=== PATIENT | female | born 1955 | race Hispanic/Latino ===

== ENCOUNTER → 2016-03-13 | Outpatient (CLI) | payer OTHER ==
[~2016-03-13] MED LIST: ABILIFY2 MG PO; AURALGAN14.8 ML RIGHT EAR; CYMBALTA60 MG PO; REMERON15 M2 PO; TRAMADOL HCL50 MG PO; VALIUM2 MG PO; XANAX XR1 MG PO
== END ==
LOC: MRI 09:55 → RAD 11:00
DX: G96.19 Other disorders of meninges, not elsewhere classified (principal); M54.2 Cervicalgia; G89.29 Other chronic pain
CPT/HCPCS: 72156

== ENCOUNTER 2016-06-04 15:39 | Emergency (ER) | payer OTHER ==
[~2016-06-04] VITALS: Ht 172.7 cm; Wt 70.7 kg
[2016-06-04 18:40] VITALS: BP 171/78
[2016-06-04] MEDS ORDERED: CYMBALTA60 MG PO (18:43)
[2016-06-04] MEDS ORDERED: DEPAKOTE125 MG PO (18:43)
[2016-06-04] MEDS ORDERED: PERCOCET 5/31 TABLET PO (18:44)
[2016-06-04] MEDS ORDERED: DICLOFENAC SOD100 G1 TP (18:44)
== END 2016-06-04 18:47 ==
LOC: EME 15:39
DX: S00.81XA Abrasion of other part of head, initial encounter (principal); R51 Headache; W05.0XXA Fall from non-moving wheelchair, initial encounter; J45.909 Unspecified asthma, uncomplicated; E11.9 Type 2 diabetes mellitus without complications; G20 Parkinson's disease; M81.0 Age-related osteoporosis without current pathological fracture
CPT/HCPCS: 70450; 70486; 99281; 99284

== ENCOUNTER 2017-01-13 13:40 | Observation (INO) | payer OTHER ==
[~2017-01-13] VITALS: Ht 154.9 cm; Wt 67.5 kg
[~2017-01-13 13:40] MED LIST changes: +DEPAKOTE125 MG PO; +DICLOFENAC SOD100 G1 TP; +PERCOCET 5/31 TABLET PO
[2017-01-13 14:01] LABS: EOSINOPHIL (%) 2.4 % (0-5); EOSINOPHIL COUNT 0.2 K/uL (0-0.3); HEMATOCRIT 39.5 % (36.0-46.0); IMMATURE GRANULOCYTE (%) 0.6 % (0.0-0.7); INSTRUMENT ABS NEUTROPHIL CT 4.1 K/uL; LYMPHOCYTE COUNT 2.4 K/uL (1.0-2.8); MCH 31.4 PG (29.0-34.0); MCHC 32.4 G/DL (30.0-36.0); MCV 96.8 FL (83-99); MEAN PLAT.VOLUME 10.8 uM^3 (9.5-12.4); MONOCYTE (%) 6.3 % (3-12); MONOCYTE COUNT 0.5 K/uL (0-0.8); NEUTROPHIL (%) 57.5 % (45-76); NEUTROPHIL COUNT 4.1 K/uL (1.8-6.4); PLATELET COUNT 165 K/uL (156-360); RBC DIS.WIDTH-CV 12.9 % (11.8-14.6); RBC DIS.WIDTH-SD 46.3 % (39-53); RED BLOOD COUNT 4.08 M/uL (3.80-5.20); WHITE BLOOD COUNT 7.2 K/uL (4.1-10.2)
[2017-01-13] MEDS ORDERED: FLONASE SENSIM9.9 ML BOTH NARES (14:04)
[2017-01-13] MEDS ORDERED: MIRALAX255 GM PO (14:05)
[2017-01-13] MEDS ORDERED: LANTUS 3 M100 UNITS1 SC (14:05)
[2017-01-13 14:07] LABS: INTER. NORMALIZED RATIO 1.1; PROTHROMBIN TIME 12.3 SEC (10.2-12.9)
[2017-01-13] MEDS ORDERED: SENOKOT S,PE1 TABLET PO ×2 (14:08)
[2017-01-13 14:09] LABS: PTT 29.4 SEC (25-37)
[2017-01-13] MEDS ORDERED: ZOCOR40 MG PO (14:09)
[2017-01-13] MEDS ORDERED: DESYREL100 MG PO (14:10)
[2017-01-13] MEDS ORDERED: CRANBERRY425 MG PO (14:10)
[2017-01-13] MEDS ORDERED: NORCO 5/3251 TABLET PO (14:10)
[2017-01-13] MEDS ORDERED: ZANAFLEX4 MG PO (14:11)
[2017-01-13 14:12] LABS: AMYLASE 128 IU/L (1-118); CHLORIDE 102 mEq/L (99-109); POTASSIUM 4.6 mEq/L (3.7-5.4); SODIUM 136 mEq/L (136-147)
[2017-01-13] MEDS ORDERED: DULCOLAX10 MG PR (14:12)
[2017-01-13] MEDS ORDERED: FLEET ENEMA-AD118 ML PR (14:12)
[2017-01-13] MEDS ORDERED: MILK OF MAGN PO (14:12)
[2017-01-13 14:14] LABS: GLUCOSE 199 mg/dL (70-99)
[2017-01-13] MEDS ORDERED: GLUCO BURST37.5 GM PO (14:14)
[2017-01-13 14:15] LABS: ANION GAP 11 MEQ/L (2-14)
[2017-01-13] MEDS ORDERED: ULTRAM50 MG PO (14:15)
[2017-01-13] MEDS ORDERED: TYLENOL REGULA325 MG PO (14:16)
[2017-01-13 14:17] LABS: SERUM ETHYL ALCOHOL < 10 mg/dL
[2017-01-13] MEDS ORDERED: LIDOCARE1 EACH TP (14:17)
[2017-01-13 14:18] LABS: GFR ESTIMATE (CALCULATED) > 59 mL/min/
[2017-01-13] MEDS ORDERED: HIPREX1 GM PO (14:18)
[2017-01-13] MEDS ORDERED: GLUCOPHAGE1000 MG PO (14:18)
[2017-01-13] MEDS ORDERED: NEURONTIN300 MG PO (14:18)
[2017-01-13 14:19] LABS: UREA NITROGEN (BUN) 11 mg/dL (9-23)
[2017-01-13] MEDS ORDERED: TOPAMAX25 MG PO (14:19)
[2017-01-13 14:21] LABS: LIPASE 25 U/L (1.0-51.0)
[2017-01-13 14:24] LABS: ADD MIUA? YES; BILIRUBIN NEGATIVE; BLOOD NEGATIVE; COLOR AMBER ((YELLOW)); GLUCOSE (STRIP) NEGATIVE; KETONES NEGATIVE; LEUKOCYTES LARGE; NITRITE POSITIVE; PROTEIN (STRIP) 30; SPECIFIC GRAVITY 1.011 (1.000-1.030); UROBILINOGEN 0.2 MG/DL (0.2-1.0)
[2017-01-13 14:24] LABS: TROP-I INTERPRETATION NEGATIVE; TROPONIN-I < 0.01 ng/mL (0.0-0.30)
[2017-01-13] MEDS ORDERED: ZOCOR20 MG PO (14:27)
[2017-01-13] MEDS ORDERED: CYMBALTA60 MG PO (14:28)
[2017-01-13 14:33] LABS: ADD MEDTOX COMMENT Y; AMPHETAMINE NEGATIVE (500 ng/mL); BARBITURATES NEGATIVE (200 ng/mL); BENZODIAZEPINES NEGATIVE (150 ng/mL); COCAINE NEGATIVE (150 ng/mL); INTERNAL CONTROLS VALID? YES; METHADONE NEGATIVE (200 ng/mL); METHAMPHETAMINE NEGATIVE (500 ng/mL); OPIATES (MORPHINE) PRESUMPTIVE POSITIVE (100 ng/mL); OXYCODONE NEGATIVE (100 ng/mL); PHENCYCLIDINE NEGATIVE (25 ng/mL); PROPOXYPHENE NEGATIVE (300 ng/mL); THC CANNABINOIDS NEGATIVE (50 ng/mL); TRICYCLIC ANTIDEPRESSANTS NEGATIVE (300 ng/mL)
[2017-01-13 14:38] LABS: BACTERIA 3+ /HPF; UCUL ADDED? YES; WHITE BLOOD CELLS TNTC /HPF (0-5)
[2017-01-13 17:54] VITALS: BP 190/86
[2017-01-13 21:31] LABS: POINT-OF-CARE METER ID UU13113700
[2017-01-14 03:39] VITALS: BP 146/70
[2017-01-14 05:41] LABS: EOSINOPHIL (%) 2.5 % (0-5); EOSINOPHIL COUNT 0.1 K/uL (0-0.3); HEMATOCRIT 34.5 % (36.0-46.0); IMMATURE GRANULOCYTE (%) 0.5 % (0.0-0.7); INSTRUMENT ABS NEUTROPHIL CT 2.9 K/uL; LYMPHOCYTE COUNT 2.2 K/uL (1.0-2.8); MCH 30.6 PG (29.0-34.0); MCHC 31.9 G/DL (30.0-36.0); MCV 96.1 FL (83-99); MEAN PLAT.VOLUME 10.3 uM^3 (9.5-12.4); MONOCYTE (%) 6.3 % (3-12); MONOCYTE COUNT 0.4 K/uL (0-0.8); NEUTROPHIL (%) 51.3 % (45-76); NEUTROPHIL COUNT 2.9 K/uL (1.8-6.4); PLATELET COUNT 145 K/uL (156-360); RBC DIS.WIDTH-CV 12.7 % (11.8-14.6); RBC DIS.WIDTH-SD 44.8 % (39-53); RED BLOOD COUNT 3.59 M/uL (3.80-5.20); WHITE BLOOD COUNT 5.7 K/uL (4.1-10.2)
[2017-01-14 06:35] LABS: ANION GAP 8 MEQ/L (2-14); CHLORIDE 105 MEQ/L (99-109); GFR ESTIMATE (CALCULATED) > 59 mL/min/; GLUCOSE 131 mg/dL (70-99); HDL CHOLESTEROL 29 MG/DL (Desirable>=50); LDL CHOLESTEROL 56 mg/dL (Desirable<100); NON-HDL CHOLESTEROL 81 mg/dL (Desirable<160); POTASSIUM 3.9 MEQ/L (3.7-5.4); SODIUM 141 MEQ/L (136-147); TOTAL CHOLESTEROL 110 mg/dL (Desirable<200); TRIGLYCERIDES 123 MG/DL (Normal: <150); UREA NITROGEN (BUN) 11 mg/dL (9-23)
[2017-01-14 06:57] LABS: Estimated Average Glucose 154 mg/dL (70-123)
[2017-01-14 08:00] VITALS: BP 162/69
[2017-01-14 08:47] LABS: POINT-OF-CARE METER ID UU13113831
[2017-01-14] MEDS ORDERED: CIPRO500 MG PO (11:02)
[2017-01-14] MEDS ORDERED: LEVAQUIN750 MG PO (11:04)
[2017-01-14 11:51] LABS: POINT-OF-CARE METER ID UU13113831
[2017-01-14 12:09] VITALS: BP 138/68
== END 2017-01-14 13:00 ==
LOC: EME → EDBD 13:40 → 5WEST 15:30 → EDOF 15:30 → ENRESERV 15:31 → 5WEST 17:39
PROVIDERS: Emergency Medicine; Internal Medicine
DX: N39.0 Urinary tract infection, site not specified (principal); I95.9 Hypotension, unspecified; G20 Parkinson's disease; R09.02 Hypoxemia; G89.29 Other chronic pain; M19.90 Unspecified osteoarthritis, unspecified site; F41.9 Anxiety disorder, unspecified; M81.0 Age-related osteoporosis without current pathological fracture; E11.9 Type 2 diabetes mellitus without complications; Z79.4 Long term (current) use of insulin; Z87.440 Personal history of urinary (tract) infections; G25.81 Restless legs syndrome; F03.90 Unspecified dementia, unspecified severity, without behavioral disturbance, psychotic disturbance, mood disturbance, and anxiety; R26.89 Other abnormalities of gait and mobility; Z90.710 Acquired absence of both cervix and uterus; Z87.891 Personal history of nicotine dependence; Z80.3 Family history of malignant neoplasm of breast; Z80.43 Family history of malignant neoplasm of testis
CPT/HCPCS: 70450; 70551; 80048; 80061; 81003; 82150; 82948; 83036; 83690; 84484; 84999; 85025; 85610; 85730; 86850; 86900; 86901; 87077; 87086; 87186; 93005; 93880; 99281; 99285; G0378; G0480; J0696; J1650; J1815; J2543; J7030; J7050